=== PATIENT | male | born 1970 | race African-American/Black ===

== ENCOUNTER 2020-11-13 07:24 | Emergency (ER) | payer BC ==
[2020-11-13 08:36] VITALS: TEMP 98.3; BMI 34.5
[2020-11-13] MEDS ORDERED: METOCLOPRAMIDE HCL INJECTION 10 MG/2 ML VIAL IVPUSH ONE (08:40)
[2020-11-13] MEDS ORDERED: SODIUM CHLORIDE 0.9% 500 ML INFUS.BAG IV ONE (08:40)
[2020-11-13] MEDS ORDERED: MECLIZINE HCL 25 MG TABLET (FP) PO ONE ×2 (08:40→13:45)
[2020-11-13] MEDS ORDERED: MECLIZINE HCL 25 MG TABLET (FP) ONE ×2 (08:51→14:10)
[2020-11-13] MEDS ORDERED: METOCLOPRAMIDE HCL INJECTION 10 MG/2 ML VIAL ONE (08:51)
[2020-11-13 09:44] LABS: BASO % 0.3 % (0-2.0); EOS % 0.2 % (0-4.5); HEMATOCRIT 40.9 % (35.4-49); HEMOGLOBIN 13.8 GM/dL (11.7-16.9); LYMPH % 11.9 % (8-40); MCH 30.1 pg (25.7-33.7); MCHC 33.8 g/dl (32.0-35.9); MEAN PLT VOLUME 8.4 fl (7.5-11.1); MONO % 3.7 % (3.8-10.2); NEUT % 83.9 % (42.8-82.8); PLATELET COUNT 206 K/MM3 (134-434); RBC 4.59 M/mm3 (4.00-5.60); RDW 14.9 % (11.9-15.9); WHITE BLOOD COUNT 10.9 K/mm3 (4.0-10.0)
[2020-11-13 10:05] LABS: POTASSIUM 3.8 mmol/L (3.5-5.1)
[2020-11-13 10:07] LABS: CALCIUM 9.2 mg/dL (8.5-10.1)
[2020-11-13 10:08] LABS: ALBUMIN 4.3 g/dl (3.4-5.0); BLOOD UREA NITROGEN 10.5 mg/dL (7-18)
[2020-11-13 10:11] LABS: CREATININE 1.1 mg/dL (0.55-1.3)
[2020-11-13 10:13] LABS: BILIRUBIN,TOTAL 0.6 mg/dL (0.2-1)
[2020-11-13 10:14] LABS: TOT PROT 7.5 g/dl (6.4-8.2)
[2020-11-13] MEDS ORDERED: diazePAM CARPU-JECT 10 MG/2 ML DISP.SYRIN IVPUSH ONE (12:19)
[2020-11-13] MEDS ORDERED: diazePAM CARPU-JECT 10 MG/2 ML DISP.SYRIN ONE (12:29)
[2020-11-13 18:21] VITALS: BP 137/91; PULSE 61
== END 2020-11-13 18:20 | disposition home or self-care (01) ==
LOC: JER 07:24
PROC: 3E033NZ Introduction of Analgesics, Hypnotics, Sedatives into Peripheral Vein, Percutaneous Approach (ICD-10-PCS; principal; 2020-11-13)
PROC: 3E033GC Introduction of Other Therapeutic Substance into Peripheral Vein, Percutaneous Approach (ICD-10-PCS; 2020-11-13)
DX: H81.10 Benign paroxysmal vertigo, unspecified ear (principal)
CPT/HCPCS: 36415; 70450-TC; 80053; 85025; 93005; 93010; 99285-25